=== PATIENT | male | born 1960 | race Caucasian/White ===

== ENCOUNTER 2023-02-14 10:17 | Outpatient (CLI) | payer MEDICAID | END 2023-02-14 23:59 | disposition home or self-care (01) | LOC: RAD 10:17 | PROVIDERS: ATTEND Nurse Practitioner Family | DX: R94.01 Abnormal electroencephalogram [EEG] (principal); G45.9 Transient cerebral ischemic attack, unspecified | CPT/HCPCS: 95819 ==